=== PATIENT | female | born 1945 | race Caucasian/White ===

== ENCOUNTER → 2017-06-24 14:54 | Outpatient (CLI) | payer MEDICARE, OTHER ==
[2015-06-06 09:15] VITALS: BMI 33.7
[~2017-06-24 14:54] MED LIST: ASPIRIN EC81 M1 PO; ASPIRIN81 MG PO; BENICAR20 MG PO; CARTIA XT240 MG PO; CO Q-10200 MG; COLACE100 MG PO; CRESTOR10 MG PO; ELIQUIS2.5 MG PO; OMEGA-3100 MG PO; PROBIOTIC PO; PROBIOTIC1 EAC1 PO; SENOKOT-S TABLE1 TAB PO; TYLENOL W/CODEI1 TAB PO
== END | disposition home or self-care (01) ==
LOC: D.MAMMO 11:00
DX: Z12.31 Encounter for screening mammogram for malignant neoplasm of breast (principal)

== ENCOUNTER → 2017-08-18 13:50 | Outpatient (CLI) | payer MEDICARE, OTHER ==
[2015-06-06 09:15] VITALS: BMI 33.7
== END | disposition home or self-care (01) ==
LOC: D.MAMMO 10:30
DX: R92.8 Other abnormal and inconclusive findings on diagnostic imaging of breast (principal)

== ENCOUNTER → 2018-08-20 07:31 | Outpatient (CLI) | payer MEDICARE, OTHER ==
[2015-06-06 09:15] VITALS: BMI 33.7
[~2018-08-20 07:31] MED LIST changes: +PROPRANOLOL HCL20 MG
== END | disposition home or self-care (01) ==
LOC: D.CT 07:31
DX: R19.00 Intra-abdominal and pelvic swelling, mass and lump, unspecified site (principal)

== ENCOUNTER 2018-09-20 05:58 | Outpatient (CLI) | payer MEDICARE, OTHER ==
[~2018-09-20] VITALS: Ht 162.6 cm; Wt 86.4 kg
[~2018-09-20 05:58] MED LIST changes: -PROPRANOLOL HCL20 MG
[2018-09-20] MEDS ORDERED: PROPRANOLOL HCL20 MG (06:57)
[2018-09-20 06:58] VITALS: Ht 162.6 cm; Wt 86.4 kg
[2018-09-20 07:35] LABS: BASOPHILS 0.5 % (0-2); EOSINOPHILS 1.7 % (0-7); HEMATOCRIT 43.2 % (36.0-48.0); HEMOGLOBIN 14.2 g/dL (12-16); IMMATURE GRANULOCYTES 0.3 % (0-5); LYMPHOCYTES 21.3 % (15-50); MCH 29.9 pg (26.0-34.0); MCHC 32.9 g/dL (31.0-37.0); MCV 90.9 fL (80.0-100.0); MEAN PLATELET VOLUME 10.3 fL (7.4-10.4); MONOCYTES 6.4 % (2-11); NEUTROPHILS 69.8 % (40-80); PLATELET COUNT 219 10x3/uL (130-400); RBC 4.75 10x6/uL (4.00-5.40); RDW 14.9 % (11.5-14.5); WBC 8.9 10x3/uL (4.8-10.8)
[2018-09-20 07:43] LABS: CALC OSMOLALITY 280 mosm/kg (275-300); CALCIUM 9.2 mg/dL (8.5-10.1); CARBON DIOXIDE 30.5 mmol/L (21.0-32.0); CHLORIDE - SERUM 102 mmol/L (98-107); CREATININE - SERUM 0.7 mg/dL (0.6-1.3); GLUCOSE 112 mg/dL (74-106); POTASSIUM - SERUM 3.9 mmol/L (3.5-5.1); SODIUM 139 mmol/L (136-145); UREA NITROGEN 19 mg/dL (7-18); eGFR NON AFRICAN AMERICAN 87 mL/min (90-120)
[2018-09-20 07:52] LABS: INR 1.11 (0.85-1.17); PROTIME 13.8 SECONDS (11.6-15.0)
[2018-09-20 07:53] LABS: APTT 33.5 SECONDS (22.8-39.4)
== END 2018-09-20 13:35 | disposition home or self-care (01) ==
LOC: D.SP 05:58 → D.RAD 08:00 → D.SP 08:00 → D.RAD 09-23 08:00
PROVIDERS: General Practice
DX: R19.00 Intra-abdominal and pelvic swelling, mass and lump, unspecified site (principal); N73.9 Female pelvic inflammatory disease, unspecified; Z01.812 Encounter for preprocedural laboratory examination

== ENCOUNTER → 2018-10-05 11:13 | Outpatient (CLI) | payer MEDICARE, OTHER ==
[2018-09-20 06:58] VITALS: BMI 32.7
[~2018-10-05 11:13] MED LIST changes: +PROPRANOLOL HCL20 MG
== END | disposition home or self-care (01) ==
LOC: D.CT 11:13
DX: R19.00 Intra-abdominal and pelvic swelling, mass and lump, unspecified site (principal)

== ENCOUNTER 2018-11-08 08:00 | Outpatient (CLI) | payer MEDICARE, OTHER ==
[2018-09-20 06:58] VITALS: BMI 32.7
== END 2018-11-08 09:00 | disposition home or self-care (01) ==
LOC: D.MAMMO 08:00
DX: R92.8 Other abnormal and inconclusive findings on diagnostic imaging of breast (principal)

== ENCOUNTER → 2019-05-05 17:11 | Outpatient (CLI) | payer MEDICARE, OTHER ==
[2018-09-20 06:58] VITALS: BMI 32.7
== END | disposition home or self-care (01) ==
LOC: D.MAMMO 14:30
PROVIDERS: ATTEND Family Medicine
DX: R92.8 Other abnormal and inconclusive findings on diagnostic imaging of breast (principal)